=== PATIENT | male | born 1935 | race African-American/Black ===

== ENCOUNTER 2018-06-30 16:46 | Inpatient (IN) | payer MEDICARE, OTHER ==
[~2018-06-30] VITALS: Ht 190.5 cm; Wt 69.9 kg
[~2018-06-30 16:46] MED LIST: AMLO10TA4 PO; ASPI-518 PO; CARB-25 PO; DONE10TA11 PO; MELO-106 PO; MEMA10TA2 PO; MULT1TAB7 PO; NAPR220C15 PO; REPA1TAB5 PO; SITA100T11 PO; [UNRECOGNIZED DRUG - CODE] PO
[2018-06-30 20:20] LABS: BASOPHILS % 0.8 % (0.0-2.0); EOSINOPHILS % 0.2 % (0.0-5.0); HEMATOCRIT. 34.1 % (42.0-52.0); HEMOGLOBIN. 11.4 g/dL (14.0-18.0); LYMPHOCYTES % 17.8 % (20.0-50.0); MEAN CORPUSCULAR HEMOGLOBIN 31.7 pg (28.0-32.0); MEAN PLATELET VOLUME 9.2 fl (7.4-10.4); MONOCYTES % 7.9 % (2.0-8.0); NEUTROPHILS % 73.3 % (40.0-76.0); PLATELET 353 x1000/uL (130-400); RED BLOOD CELL COUNT 3.58 mill/uL (4.7-6.1); RED CELL DISTRIBUTION WIDTH 15.7 % (11.6-14.6)
[2018-06-30 20:24] LABS: CHLORIDE 107 mEq/L (98-107)
[2018-06-30 21:00] LABS: CLARITY URINE TURBID (CLEAR); COLOR URINE YELLOW (YELLOW); KETONES URINE NEGATIVE (NEGATIVE); LEUKOCYTE ESTERASE URINE 3+ (NEGATIVE); NITRITE URINE NEGATIVE (NEGATIVE); OCCULT BLOOD URINE 1+ (NEGATIVE); PH URINE 5.5 (4.5-8.0); PROTEIN URINE 2+ (NEGATIVE); SPECIFIC GRAVITY URINE 1.011 (1.005-1.030)
[2018-06-30 21:25] LABS: *AMPHETAMINES SCREEN URINE NEGATIVE (NEGATIVE); *BARBITURATES SCREEN URINE NEGATIVE (NEGATIVE); *BENZODIAZEPINES SCREEN URINE NEGATIVE (NEGATIVE); *COCAINE SCREEN URINE NEGATIVE (NEGATIVE)
[2018-06-30 21:26] LABS: CANNABINOID URINE SCREEN NEGATIVE (NEGATIVE); METHADONE URINE SCREEN NEGATIVE (NEGATIVE); OPIATES URINE SCREEN NEGATIVE (NEGATIVE); PHENCYCLIDINE URINE SCREEN NEGATIVE (NEGATIVE)
[2018-06-30] MEDS ORDERED: ONDANSETRON HCL 4MG/2ML INJ IV PRN (22:30)
[2018-06-30] MEDS ORDERED: DOCUSATE SODIUM 100MG CAPSULE PO PRN (22:30)
[2018-06-30] MEDS ORDERED: MORPHINE SULFATE 4 MG/ML CPJ (NOT FOR IM USE) IV PRN (22:30)
[2018-06-30] MEDS ORDERED: HYDROCODONE/ACETAMINOPHEN 5/325MG TABLET PO PRN (22:30)
[2018-07-01 12:30] VITALS: BP 144/72
[2018-07-01] MEDS: SODIUM CHLORIDE 0.9% 1,000 ML IV SCH (15:10)
[2018-07-01 16:00] VITALS: BP 155/69
[2018-07-01 18:40] VITALS: BP 144/72
[2018-07-01] MEDS: FOLIC ACID 1MG TABLET PO SCH (18:53)
[2018-07-01] MEDS: ASPIRIN 81MG EC TABLET PO SCH (18:53)
[2018-07-01 20:00] VITALS: BP 110/99
[2018-07-01] MEDS ORDERED: CEFTRIAXONE 1,000 MG in DEXTROSE 5% WATER 50 ML IV SCH (20:30)
[2018-07-01] MEDS: CEFTRIAXONE 1 G PREMIX 50 ML IV SCH (21:19)
[2018-07-01] MEDS: CLONIDINE 0.1MG TABLET PO PRN (23:41)
[2018-07-01] MEDS ORDERED: DEXTROSE 50% WATER 50ML SYRINGE IV PRN (23:45)
[2018-07-02] VITALS (7 sets, daily range): BP systolic 112–170; BP diastolic 65–84
[2018-07-02] MEDS: BLOOD SUGAR DIAGNOSTIC STRIP TEST SCH ×4 (05:24→22:44)
[2018-07-02 07:02] LABS: BASOPHILS % 0.7 % (0.0-2.0); EOSINOPHILS % 1.8 % (0.0-5.0); HEMATOCRIT. 31.6 % (42.0-52.0); HEMOGLOBIN. 10.5 g/dL (14.0-18.0); LYMPHOCYTES % 34.7 % (20.0-50.0); MEAN CORPUSCULAR HEMOGLOBIN 32.2 pg (28.0-32.0); MEAN PLATELET VOLUME 8.1 fl (7.4-10.4); MONOCYTES % 12.2 % (2.0-8.0); NEUTROPHILS % 50.6 % (40.0-76.0); PLATELET 339 x1000/uL (130-400); RED BLOOD CELL COUNT 3.25 mill/uL (4.7-6.1); RED CELL DISTRIBUTION WIDTH 15.2 % (11.6-14.6)
[2018-07-02] MEDS: INSULIN LISPRO 100 UNITS/ML SUBCUT SCH ×4 (08:10→22:57)
[2018-07-02] MEDS: FOLIC ACID 1MG TABLET PO SCH (08:57)
[2018-07-02] MEDS: ASPIRIN 81MG EC TABLET PO SCH (08:57)
[2018-07-02] MEDS: SODIUM CHLORIDE 0.9% 1,000 ML IV SCH (13:35)
[2018-07-02] MEDS ORDERED: LIDOCAINE HCL 2% JELLY 5ML MM SCH (15:30)
[2018-07-02] MEDS: POTASSIUM CHLORIDE 20MEQ TABLET SR PO SCH (17:34)
[2018-07-02] MEDS: MEMANTINE HCL 10MG TABLET PO SCH (18:36)
[2018-07-02] MEDS: ROPINIROLE HCL 1MG TABLET PO SCH (18:36)
[2018-07-02] MEDS: CARBIDOPA/LEVODOPA 25/100MG TABLET CR PO SCH (19:29)
[2018-07-02] MEDS: CEFTRIAXONE 1 G PREMIX 50 ML IV SCH (21:17)
[2018-07-02] MEDS: TAMSULOSIN HCL 0.4MG SR CAPSULE PO SCH (22:34)
[2018-07-02] MEDS: DONEPEZIL HCL 10MG TABLET PO SCH (22:52)
[2018-07-03] MEDS: BLOOD SUGAR DIAGNOSTIC STRIP TEST SCH ×4 (05:21→21:00)
[2018-07-03] MEDS: INSULIN LISPRO 100 UNITS/ML SUBCUT SCH ×4 (05:23→21:11)
[2018-07-03 07:00] LABS: BASOPHILS % 0.7 % (0.0-2.0); EOSINOPHILS % 1.5 % (0.0-5.0); HEMATOCRIT. 31.2 % (42.0-52.0); HEMOGLOBIN. 10.4 g/dL (14.0-18.0); LYMPHOCYTES % 37.3 % (20.0-50.0); MEAN CORPUSCULAR HEMOGLOBIN 31.5 pg (28.0-32.0); MEAN CORPUSCULAR VOLUME 94.5 fL (80.0-94.0); MEAN PLATELET VOLUME 8.8 fl (7.4-10.4); MONOCYTES % 8.3 % (2.0-8.0); NEUTROPHILS % 52.2 % (40.0-76.0); PLATELET 346 x1000/uL (130-400); RED CELL DISTRIBUTION WIDTH 15.6 % (11.6-14.6)
[2018-07-03] MEDS: MEMANTINE HCL 10MG TABLET PO SCH ×2 (09:11→18:15)
[2018-07-03] MEDS: ROPINIROLE HCL 1MG TABLET PO SCH ×3 (09:11→18:15)
[2018-07-03] MEDS: AMLODIPINE 10MG TABLET PO SCH (09:11)
[2018-07-03] MEDS: POTASSIUM CHLORIDE 20MEQ TABLET SR PO SCH (09:11)
[2018-07-03] MEDS: CARBIDOPA/LEVODOPA 25/100MG TABLET CR PO SCH ×3 (09:11→18:14)
[2018-07-03] MEDS: MELOXICAM 7.5MG TABLET PO SCH (09:11)
[2018-07-03] MEDS: ASPIRIN 81MG EC TABLET PO SCH (09:11)
[2018-07-03] MEDS ORDERED: KCL 20MEQ/100ML PREMIX 100 ML IV NR (10:00)
[2018-07-03 10:03] LABS: T4 FREE 1.28 ng/dL (0.76-1.46)
[2018-07-03 10:27] LABS: VITAMIN B12 SERUM 1630 pg/mL (211-911)
[2018-07-03 10:40] LABS: FOLIC ACID (FOLATE) SERUM > 20.00 ng/mL (>5.38)
[2018-07-03] MEDS ORDERED: POTASSIUM CHLORIDE 20MEQ TABLET SR PO NR (11:30)
[2018-07-03 12:00] VITALS: BP 154/68
[2018-07-03 16:00] VITALS: BP 168/62
[2018-07-03 20:00] VITALS: BP 115/62
[2018-07-03] MEDS: DONEPEZIL HCL 10MG TABLET PO SCH (21:06)
[2018-07-03] MEDS: TAMSULOSIN HCL 0.4MG SR CAPSULE PO SCH (21:06)
[2018-07-03] MEDS: CEFTRIAXONE 1 G PREMIX 50 ML IV SCH (21:06)
[2018-07-04] VITALS (7 sets, daily range): BP systolic 111–148; BP diastolic 51–91
[2018-07-04 06:48] LABS: BASOPHILS % 0.3 % (0.0-2.0); EOSINOPHILS % 2.8 % (0.0-5.0); HEMATOCRIT. 28.8 % (42.0-52.0); HEMOGLOBIN. 9.5 g/dL (14.0-18.0); LYMPHOCYTES % 45.9 % (20.0-50.0); MEAN CORPUSCULAR HEMOGLOBIN 30.6 pg (28.0-32.0); MONOCYTES % 8.4 % (2.0-8.0); NEUTROPHILS % 42.6 % (40.0-76.0); PLATELET 336 x1000/uL (130-400); RED BLOOD CELL COUNT 3.09 mill/uL (4.7-6.1); RED CELL DISTRIBUTION WIDTH 15.6 % (11.6-14.6)
[2018-07-04] MEDS: INSULIN LISPRO 100 UNITS/ML SUBCUT SCH ×4 (08:10→20:25)
[2018-07-04] MEDS: POTASSIUM CHLORIDE 20MEQ TABLET SR PO SCH (08:20)
[2018-07-04] MEDS: ASPIRIN 81MG EC TABLET PO SCH (08:20)
[2018-07-04] MEDS: CARBIDOPA/LEVODOPA 25/100MG TABLET CR PO SCH ×3 (08:20→16:14)
[2018-07-04] MEDS: ROPINIROLE HCL 1MG TABLET PO SCH ×3 (08:21→16:14)
[2018-07-04] MEDS: MEMANTINE HCL 10MG TABLET PO SCH ×2 (08:21→16:14)
[2018-07-04] MEDS: MELOXICAM 7.5MG TABLET PO SCH (08:21)
[2018-07-04] MEDS: AMLODIPINE 10MG TABLET PO SCH (08:22)
[2018-07-04] MEDS: BLOOD SUGAR DIAGNOSTIC STRIP TEST SCH ×4 (08:23→20:25)
[2018-07-04] MEDS: TAMSULOSIN HCL 0.4MG SR CAPSULE PO SCH (20:32)
[2018-07-04] MEDS: CEFTRIAXONE 1 G PREMIX 50 ML IV SCH (20:32)
[2018-07-04] MEDS: DONEPEZIL HCL 10MG TABLET PO SCH (20:32)
[2018-07-05] VITALS: BP 125/72
[2018-07-05 04:00] VITALS: BP 170/80
[2018-07-05] MEDS: BLOOD SUGAR DIAGNOSTIC STRIP TEST SCH ×4 (06:02→20:40)
[2018-07-05] MEDS: CLONIDINE 0.1MG TABLET PO PRN ×2 (06:03→20:42)
[2018-07-05 08:00] VITALS: BP 144/77
[2018-07-05] MEDS: INSULIN LISPRO 100 UNITS/ML SUBCUT SCH ×4 (08:07→20:45)
[2018-07-05] MEDS: POTASSIUM CHLORIDE 20MEQ TABLET SR PO SCH (10:03)
[2018-07-05] MEDS: ASPIRIN 81MG EC TABLET PO SCH (10:03)
[2018-07-05] MEDS: MEMANTINE HCL 10MG TABLET PO SCH ×2 (10:03→16:22)
[2018-07-05] MEDS: MELOXICAM 7.5MG TABLET PO SCH (10:04)
[2018-07-05] MEDS: CARBIDOPA/LEVODOPA 25/100MG TABLET CR PO SCH ×3 (10:04→19:08)
[2018-07-05] MEDS: ROPINIROLE HCL 1MG TABLET PO SCH ×3 (10:04→19:08)
[2018-07-05] MEDS: AMLODIPINE 10MG TABLET PO SCH (10:05)
[2018-07-05 12:00] VITALS: BP 129/79
[2018-07-05 16:02] VITALS: BP 137/77
[2018-07-05 20:00] VITALS: BP 169/63
[2018-07-05] MEDS: DONEPEZIL HCL 10MG TABLET PO SCH (20:42)
[2018-07-05] MEDS: TAMSULOSIN HCL 0.4MG SR CAPSULE PO SCH (20:42)
[2018-07-05] MEDS: CEFTRIAXONE 1 G PREMIX 50 ML IV SCH (20:44)
[2018-07-06] VITALS: BP 135/79
[2018-07-06 04:00] VITALS: BP 162/87
[2018-07-06] MEDS: BLOOD SUGAR DIAGNOSTIC STRIP TEST SCH ×2 (06:12→12:51)
[2018-07-06] MEDS: CLONIDINE 0.1MG TABLET PO PRN (06:13)
[2018-07-06 06:18] LABS: EOSINOPHILS % 3.2 % (0.0-5.0); HEMATOCRIT. 29.8 % (42.0-52.0); HEMOGLOBIN. 9.9 g/dL (14.0-18.0); LYMPHOCYTES % 51.1 % (20.0-50.0); MEAN CORPUSCULAR VOLUME 93.1 fL (80.0-94.0); MONOCYTES % 7.2 % (2.0-8.0); NEUTROPHILS % 37.5 % (40.0-76.0); PLATELET 398 x1000/uL (130-400); RED CELL DISTRIBUTION WIDTH 15.3 % (11.6-14.6)
[2018-07-06 06:45] LABS: PHOSPHORUS 2.5 mg/dL (2.5-4.9)
[2018-07-06] MEDS: INSULIN LISPRO 100 UNITS/ML SUBCUT SCH ×2 (07:57→12:48)
[2018-07-06] MEDS: AMLODIPINE 10MG TABLET PO SCH (09:02)
[2018-07-06] MEDS: ASPIRIN 81MG EC TABLET PO SCH (09:02)
[2018-07-06] MEDS: MELOXICAM 7.5MG TABLET PO SCH (09:02)
[2018-07-06] MEDS: MEMANTINE HCL 10MG TABLET PO SCH (09:03)
[2018-07-06] MEDS: CARBIDOPA/LEVODOPA 25/100MG TABLET CR PO SCH ×2 (09:03→12:51)
[2018-07-06] MEDS: POTASSIUM CHLORIDE 20MEQ TABLET SR PO SCH (09:03)
[2018-07-06] MEDS: ROPINIROLE HCL 1MG TABLET PO SCH ×2 (09:03→12:50)
[2018-07-06 12:16] VITALS: BP 149/75
[2018-07-06] MEDS ORDERED: IOHEXOL-300 100 ML BOTTLE ONE (14:22)
[2018-07-06] MEDS ORDERED: CEFTRIAXONE 1 G PREMIX 50 ML IV NR (14:30)
[2018-07-06 15:09] VITALS: BP 149/75
== END 2018-07-06 16:30 | disposition home or self-care (01) | DRG 871 ==
LOC: ER 16:46 → 7WST 21:45 → EDBEDREQ 21:48 → EDBEDREQTM 21:48 → EDBEDREQ 22:38 → EDBEDREQTM 22:38 → ENRESERV 07-01 11:27
PROVIDERS: ADMIT Internal Medicine Nephrology; ATTEND Internal Medicine Nephrology
DX: A41.51 Sepsis due to Escherichia coli [E. coli] (principal); G92 Toxic encephalopathy; E43 Unspecified severe protein-calorie malnutrition; N17.0 Acute kidney failure with tubular necrosis; E87.0 Hyperosmolality and hypernatremia; R47.01 Aphasia; Z68.1 Body mass index [BMI] 19.9 or less, adult; I69.351 Hemiplegia and hemiparesis following cerebral infarction affecting right dominant side; N13.6 Pyonephrosis; E87.6 Hypokalemia; E04.1 Nontoxic single thyroid nodule; B96.20 Unspecified Escherichia coli [E. coli] as the cause of diseases classified elsewhere; D63.8 Anemia in other chronic diseases classified elsewhere; C61 Malignant neoplasm of prostate; E11.42 Type 2 diabetes mellitus with diabetic polyneuropathy; E11.65 Type 2 diabetes mellitus with hyperglycemia; E78.5 Hyperlipidemia, unspecified; F03.90 Unspecified dementia, unspecified severity, without behavioral disturbance, psychotic disturbance, mood disturbance, and anxiety; G20 Parkinson's disease; I10 Essential (primary) hypertension; I25.10 Atherosclerotic heart disease of native coronary artery without angina pectoris; K40.20 Bilateral inguinal hernia, without obstruction or gangrene, not specified as recurrent; M12.9 Arthropathy, unspecified; M46.90 Unspecified inflammatory spondylopathy, site unspecified; M47.814 Spondylosis without myelopathy or radiculopathy, thoracic region; M48.02 Spinal stenosis, cervical region; M48.061 Spinal stenosis, lumbar region without neurogenic claudication; M53.82 Other specified dorsopathies, cervical region; N32.0 Bladder-neck obstruction; N40.0 Benign prostatic hyperplasia without lower urinary tract symptoms; R29.6 Repeated falls; R62.7 Adult failure to thrive; Z85.46 Personal history of malignant neoplasm of prostate; Z91.19 Patient's noncompliance with other medical treatment and regimen; Z79.82 Long term (current) use of aspirin; Z79.899 Other long term (current) drug therapy; Z95.0 Presence of cardiac pacemaker; E11.22 Type 2 diabetes mellitus with diabetic chronic kidney disease; I12.9 Hypertensive chronic kidney disease with stage 1 through stage 4 chronic kidney disease, or unspecified chronic kidney disease; N18.9 Chronic kidney disease, unspecified
CPT/HCPCS: 36415; 71045; 72128; 72131; 74176; 76536; 80048; 80305; 82140; 82550; 82607; 82746; 82962; 83036; 83605; 83735; 83880; 84100; 84146; 84153; 84439; 84443; 84481; 84484; 87077; 87186; 92523; 92610; 93005; 96361; 96365; 97116; 97162; 97166; 97530; 99285; C1893; J0696; J1815; J3480; J7050; Q9967; A4315; G0103